=== PATIENT | male | born 1985 | race American Indian/Alaskan Native ===

== ENCOUNTER 2017-11-07 20:11 | Emergency (ER) | payer SELFPAY ==
[2017-11-07 21:04] VITALS: BP 116/72
[2017-11-07] MEDS ORDERED: CLEOCIN IM ONE (22:03)
[2017-11-07] MEDS ORDERED: TORADOL IM ONE (22:03)
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
[2017-11-07] MEDS ORDERED: TRIPLE ANTIBIOTIC TP ONE (22:27)
[2017-11-07] MEDS ORDERED: NACL 0.9% IR ONE (22:28)
== END 2017-11-07 23:20 | disposition home or self-care (01) ==
LOC: ED 20:11
DX: S61.411A Laceration without foreign body of right hand, initial encounter (principal); W22.01XA Walked into wall, initial encounter; Y93.89 Activity, other specified; Y99.8 Other external cause status; Y92.89 Other specified places as the place of occurrence of the external cause
CPT/HCPCS: 12001; 73130; 96372; 99283; J1885

== ENCOUNTER 2020-07-17 21:14 | Emergency (ER) | payer SELFPAY ==
[2020-07-17 21:53] VITALS: BP 127/80
[2020-07-17] MEDS ORDERED: ACETAMINOPHEN 325 MG TAB ONE (21:56)
[2020-07-17] MEDS ORDERED: ACETAMINOPHEN 325 MG TAB PO ONE (21:57)
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
[2020-07-18] MEDS ORDERED: ONDANSETRON 4 MG ODT TAB PO ONE (04:12)
[2020-07-18] MEDS ORDERED: HYDROcodone/ACETAMINOPHEN 7.5-325MG TAB PO ONE (04:12)
[2020-07-18] MEDS ORDERED: IBUPROFEN 600 MG TAB PO ONE (04:12)
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
== END 2020-07-18 07:08 | disposition other institution (70) ==
LOC: ED 21:14
DX: S02.69XA Fracture of mandible of other specified site, initial encounter for closed fracture (principal); S00.83XA Contusion of other part of head, initial encounter; F17.200 Nicotine dependence, unspecified, uncomplicated; F12.10 Cannabis abuse, uncomplicated; Y04.2XXA Assault by strike against or bumped into by another person, initial encounter; Y93.89 Activity, other specified; Y92.89 Other specified places as the place of occurrence of the external cause; Y99.8 Other external cause status
CPT/HCPCS: 70486; Q0162